=== PATIENT | female | born 2000 | race Caucasian/White ===

== ENCOUNTER 2022-11-20 14:15 | Outpatient (CLI) | payer OTHER, SELFPAY ==
[2022-11-20 19:30] LABS: Basophils Absolute Auto 0.1 K/mm3 (0.0-0.1); Basophils Percent Auto 1.2 % (0.2-1.2); Eosinophils Absolute Auto 0.3 K/mm3 (0-0.3); Eosinophils Percent Auto 4.9 % (0-4.4); Hematocrit 42.6 % (37.0-47.0); Hemoglobin 14.4 g/dL (12.0-15.0); Immature Granulocyte Absolute 0.01 K/mm3 (0.00-0.031); Immature Granulocyte Percent A 0.2 % (0-0.5); Lymphocytes Absolute Auto 2.04 K/mm3 (0.9-3.2); Lymphocytes Percent Auto 34.5 % (18.3-44.2); Mean Corpuscular HGB Conc 33.8 g/dl (32-36); Mean Corpuscular Hemoglobin 28.9 pg (26-34); Mean Corpuscular Volume 85.5 fl (80-100); Mean Platelet Volume 9.6 fl (7.4-10.4); Monocytes Absolute Auto 0.4 K/mm3 (0.1-0.6); Monocytes Percent Auto 6.4 % (2.6-8.5); Neutrophils Absolute Auto 3.1 K/mm3 (1.3-6.7); Neutrophils Percent Auto 52.8 % (45.5-73.1); Platelet Count Result 253 k/mm3 (150-375); Red Blood Count 4.98 M/mm3 (4.2-5.4); Red Cell Distribution Width 11.7 % (11.5-14.5); White Blood Count 5.9 K/mm3 (4.5-10.0)
[2022-11-20 19:37] LABS: Anion Gap 6 mmol/L (8-16); Blood Urea Nitrogen 12 mg/dL (7-17); Calcium 9.2 mg/dL (8.4-10.2); Carbon Dioxide 30 mmol/L (22-30); Chloride 102 mmol/L (98-107); Estimated Glomerular Filt Rate > 60; Glucose 80 mg/dL (65-110); Sodium 138 mmol/L (137-145)
[2022-11-26 19:33] LABS: EBV Nuclear Ab Antibody <18.00 U/mL (<18.00); EBV Nuclear Ab Interpretation Negative; EBV Virus Capsid Ag IgG Ab <18.00 U/mL (<18.00); EBV Virus Capsid Ag IgM Ab <36.00 U/mL (<36.00)
== END 2022-11-20 14:16 | disposition home or self-care (01) ==
LOC: ANHGOSHLAB 14:17
PROVIDERS: PCP Family Medicine; Visit Provider Family Medicine
DX: R59.0 Localized enlarged lymph nodes (principal)
CPT/HCPCS: 36415; 80048; 85025; 86664; 86665

== ENCOUNTER → 2022-12-25 09:09 | Outpatient (CLI) | payer OTHER, SELFPAY ==
--- NOTE | ~2022-12-25 | US_ITS ---
US soft tissue head and neck 12/25/2022 09:27 Indication: Localized lymph node enlargement Procedure: High-resolution Limited ultrasound of the right neck Comparison: No prior studies for comparison. Findings: There are normal-appearing lymph nodes in the right neck containing normal fatty hilum, lar gest measuring 8 mm. No suspicious solid or cystic masses are identified. Impression: 1: Normal right posterior cervical lymph nodes measuring up to 8 mm, likely reactive. Reviewed, dictated and finalized at location A. Impression: 1: Normal right posterior cervical lymph nodes measuring up to 8 mm, likely ray ctive.
== END ==
PROVIDERS: PCP Family Medicine; Visit Provider Family Medicine
DX: R59.0 Localized enlarged lymph nodes (principal)
CPT/HCPCS: 76536

== ENCOUNTER 2023-04-14 13:43 | Emergency (ER) | payer OTHER, SELFPAY ==
[2023-04-14 13:50] VITALS: BP 105/69; PULSE 75; RESP 19; TEMP 36.5; O2SAT 100
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
== END 2023-04-14 14:29 | disposition home or self-care (01) ==
PROVIDERS: Emergency Provider Nurse Practitioner; PCP Family Medicine
DX: S61.011A Laceration without foreign body of right thumb without damage to nail, initial encounter (principal); W27.4XXA Contact with kitchen utensil, initial encounter; Y93.9 Activity, unspecified
CPT/HCPCS: 12001; 99212; G0463